=== PATIENT | female | born 1975 | race Two or more races ===

== ENCOUNTER → 2024-04-28 | Outpatient (CLI) | payer BC, MEDICAID, SELFPAY ==
--- NOTE | 2024-04-28 | XR_ITS ---
Examination: Breast ultrasound, unilateral, left complete Date and time of exam: April 20, 2024 1514 hrs. Indications: Nipple discharge 2 weeks with palpable retroareolar nodules Technique: Real-time gomes scale ultrasonographic imaging performed left breast including all 4 quadrants as well as nipple retroareolar and axillary region. Findings: 2:00 cyst 12 x 10 mm 2:00 cyst 4 x 5 mm No solid nodules Impression: BI-RADS Category 2: Benign findings
== END | disposition home or self-care (01) ==
LOC: CDIM 14:57
PROVIDERS: PCP Physician Assistant Medical; Referring Provider Physician Assistant Medical; Visit Provider Physician Assistant Medical
DX: N64.52 Nipple discharge (principal)
CPT/HCPCS: 76641